=== PATIENT | female | born 1940 | race African-American/Black ===

== ENCOUNTER → 2016-07-05 | Outpatient (CLI) | payer OTHER ==
[~2016-07-05] VITALS: Ht 165.1 cm; Wt 57.5 kg
[~2016-07-05] MED LIST: ALEVE220 MG PO; BACLOFEN 10MG T10 MG PO; CLARITIN10 MG PO; CRESTOR10 MG PO; MUCINEX TA600 MG/TA2 PO; NAPROSYN500 MG PO; NEURONTIN 300300 M1 PO; PERCOCET 5-3251 EACH PO; PERCOCET PO
--- NOTE | ~2016-07-05 | HPC ---
[facility] [place] [address] PAIN MANAGEMENT CONSULTATION Name: WILFREDOCYN Kayla Room #: REG CHELSEAAisha Plata#: [id number] Admission: 07/05/16 Attend Phys: Bryce Dsouza DO Discharge: Date of : 44 Report #: [id number] THIS REPORT FOR: //name// CC: Bryce Yeboah MD DATE OF SERVICE: 07/05/2016 REFERRING PHYSICIAN: José Miguel Yeboah MD. CHIEF COMPLAINT: Low back pain, bilateral upper extremity pain with paresthesias. HISTORY OF PRESENT ILLNESS: As you know, the patient is a 76-year-old female with longstanding history of lumbar radicular symptoms secondary to severe foraminal stenosis. She returns today in followup visit with her family to request refill of medications for pain control. She is taking oxycodone at night only 1 tab p.o. at bedtime, appears to work well for the patient. She is experiencing some daytime pain for which they request possible change in therapy. They have returned to discuss options for treatment. The patient is placing pain score somewhere between 8-9/10. As you are aware, the patient has a decreasing in mental acuity due to what appears to be increasing dementia. This provides the patient with the inability to control how she perceives pain, and this is where the pain that she is currently experiencing is generated. We have discussed with the patient in the past, as well as with her family, they understand that a portion of her complaints have to do with the inability to regulate pain levels, in the patients such as . They typically recognize pain as either present or not. There is very little yang area, thus pain levels are typically elevated from report standpoint. She returns for medication management, appears to be doing well, per family. Despite this elevated 8-9 pain level report. ALLERGIES: No known drug allergies. CURRENT MEDICATIONS: Oxycodone 5 mg once a day, gabapentin 600 mg p.o. at bedtime, guaifenesin 600 mg p.r.n., loratadine 10 mg a day, lovastatin 10 mg a day. SOCIAL HISTORY: The patient denies tobacco, alcohol, IV or illicit drug use. She is retired, retired years ago, accompanied by her and her [id number]. IMAGING: No imaging available. PHYSICAL EXAMINATION: [facility] [address] [place] [address] PAIN MANAGEMENT CONSULTATION Name: WILFREDOCYN E Room #: REG YASEMIN Sherlyn#: [id number] Admission: 07/05/16 Attend Phys: Bryce Dsouza DO Discharge: Date of : 44 Report #: [id number] VITAL SIGNS: Blood pressure 126/63, pulse 61, respiratory rate 16 and unlabored. The patient is 100% on room air. Height 5 feet 5 inches tall. Weight 126.8 pounds, BMI calculated 21.1. GENERAL: Well-developed, well-nourished, and well-hydrated. A 76-year-old female who appears her stated age. She is awake, but is not able to track our conversation well. She is making comments that do not correlate with our current conversation. HEENT: Normocephalic and atraumatic. Pupils are equal, round, and reactive to light. Extraocular muscles are intact. EXTREMITIES: Show no clubbing, no cyanosis, no edema. MUSCULOSKELETAL: Seated straight leg raising negative, supine straight leg raising negative. Collin's test negative. Modified Gaenslen's is positive for axial low back pain. ASSESSMENT: 1. Symptomatic lumbar radiculopathy. 2. Displacement of lumbar intervertebral disk with radiculopathy. 3. Lumbosacral spondylosis with radiculopathy. 4. 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 5. Chronic intractable pain. PLAN: 1. The patient returns today in followup visit with family, who are providing the majority of the patient's history. Family has determined that if she takes one Oxycodone at night and utilizes her gabapentin, she seems to do well. She does have some daytime pain, which appears to be osteoarthritic in nature. The majority of pain that she is experiencing is over the left hand. As you are aware, the patient has had surgery in the area to try to alleviate some of the symptoms, but this has been ineffective. They have returned requesting medication management to continue at current dosing and also possibility of a new anti-inflammatory medication. 2. The patient was provided a prescription of oxycodone 5 mg dose 1 tab p.o. at bedtime. I have given the patient #30, releases of today, 4 weeks from today, and 8 weeks from today, 3 months' worth of medication at current dosing. The patient was advised to take this medication only as provided. She is not to try to take more medication. 3. I have provided the patient with naproxen sodium 500 mg dose 1 tab p.o. b.i.d., #60. She will take one in the morning, one again at around 6'o clock in the evening hours. She was given this with 2 refills. She is to watch for dyspepsia, worsening blood pressure, or lower extremity edema with the use of this medication. If any potential side effects, discontinue immediately call for further instructions. 4. The patient and I did have a discussion with the family present today about how decreasing mental acuity tends to affect pain perception. Again, I have advised the patient and her family that the perception of pain in most patients with decreased mental acuity is difficult to obtain. They have either pain that [facility] [address] [place] [address] PAIN MANAGEMENT CONSULTATION Name: CYN VILLALOBOS Room #: REG YASEMIN Plata#: [id number] Admission: 07/05/16 Attend Phys: Bryce Dsouza DO Discharge: Date of : 44 Report #: [id number] is present or not present, it is difficult for them to regulate the pain levels, so they rarely give a pain scores of 1 through 7. They typically give pain scores of either not present or fully present 8-10/10. This patient is displaying very similar kind of responses when questioned about pain. She is easily distracted from her pain, indicating that her pain levels are typically not as high as reported. These patients are very difficult to treat, as it is difficult to determine if the pain is truly present into one level. I believe this low dose formula of treatment appears to be working well. I would recommend continuation for the next 3 months. By: [id number] Bryce Dsouza DO /nt
[2016-07-05 11:18] VITALS: BP 126/63
== END | disposition home or self-care (01) ==
LOC: PAIN 07:00
DX: M51.16 Intervertebral disc disorders with radiculopathy, lumbar region (principal); M47.27 Other spondylosis with radiculopathy, lumbosacral region; M48.06 Spinal stenosis, lumbar region; G89.29 Other chronic pain; Z87.891 Personal history of nicotine dependence

== ENCOUNTER 2016-12-06 11:51 | Emergency (ER) | payer OTHER ==
[~2016-12-06] VITALS: Ht 167.6 cm; Wt 54.4 kg
[2016-12-06] MEDS ORDERED: NEXIUM40 MG PO (12:15)
[2016-12-06 13:54] LABS: ABSOLUTE NEUTROPHILS 2.9 thou/uL (1.4-8.2); BASOPHILS 0.6 % (0.0-2.0); EOSINOPHILS 3.8 % (0.0-3.0); HEMATOCRIT 38.1 % (37.0-47.0); HEMOGLOBIN 13.1 gm/dL (12.0-15.0); LYMPHOCYTES 38.5 % (24.0-44.0); MCH 32.6 pg (26.0-34.0); MCHC 34.4 g/dL (28.0-37.0); MCV 94.6 fL (80.0-100.0); MONOCYTES 7.3 % (1.0-8.0); PLATELET COUNT 268 thou/uL (150-400); POLYS 49.8 % (36.0-66.0); RBC 4.03 mil/uL (4.20-5.00); RDW 13.1 % (10.5-14.5); WBC 5.8 thou/uL (4.0-11.0)
[2016-12-06 13:55] LABS: MANUAL DIFF NO
[2016-12-06 14:10] LABS: CALCIUM 9.3 mg/dL (8.5-10.1); CREATININE 0.6 mg/dL (0.6-1.0); POTASSIUM 3.6 mmol/L (3.5-5.1)
[2016-12-06 14:15] LABS: ALBUMIN 3.6 g/dL (3.4-5.0); TOTAL BILIRUBIN 0.4 mg/dL (<0.1-1.0); TOTAL PROTEIN 6.8 g/dL (6.4-8.2)
[2016-12-06] MEDS ORDERED: TRAMADOL 50 MG50 MG PO (14:30)
== END 2016-12-06 15:08 | disposition home or self-care (01) ==
LOC: ER 11:51
PROVIDERS: Emergency Medicine
DX: S93.601A Unspecified sprain of right foot, initial encounter (principal); F03.90 Unspecified dementia, unspecified severity, without behavioral disturbance, psychotic disturbance, mood disturbance, and anxiety; X58.XXXA Exposure to other specified factors, initial encounter; Y93.89 Activity, other specified; Y92.89 Other specified places as the place of occurrence of the external cause; Y99.8 Other external cause status

== ENCOUNTER 2017-01-03 10:58 | Emergency (ER) | payer OTHER ==
[~2017-01-03] VITALS: Ht 170.2 cm; Wt 62.6 kg
--- NOTE | ~2017-01-03 | EKG ---
[place] [address] [facility] [place] [address] ELECTROCARDIOGRAM REPORT Name: WILFREDOCYN E Room [facility]: [facility] [id number] Admission: 01/03/17 Attend Phys: Discharge: 01/03/17 Date of : 44 Report #: [id number] THIS REPORT FOR: //name// [facility] ED Test Date: 2017-01-03 Test Time: 11:27:52 Pat Name: CYN VILLALOBOS Department: Room: Gender: F Head Of Housekeeping: LIN : 1940 Requested By: Kaleb Ospina Order Number: [id number] MD: Bj Mathews Measurements Intervals Hickman Rate: 50 P: 58 ME: 129 QRS: 4 QRSD: 100 T: 36 QT: 456 QTc: 416 Interpretive Statements Sinus bradycardia Borderline low voltage, extremity leads Compared to ECG 05/01/2008 15:44:24 No significant changes Electronically Signed On 01-03-2017 17:18:43 CDT by Bj Mathews [email or web address] <ELECTRONICALLY SIGNED> By: Bj Mathews MD, [facility] 01/03/17 1718 [id number] Bj Mathews MD, FACC /EPI
[~2017-01-03 10:58] MED LIST changes: +NEXIUM40 MG PO; +TRAMADOL 50 MG50 MG PO
[2017-01-03 11:35] LABS: MCH 32.6 pg (26.0-34.0)
[2017-01-03 11:37] LABS: BASOPHILS 0.9 % (0.0-2.0); EOSINOPHILS 2.1 % (0.0-3.0); HEMATOCRIT 39.1 % (37.0-47.0); HEMOGLOBIN 13.3 gm/dL (12.0-15.0); LYMPHOCYTES 32.4 % (24.0-44.0); MCHC 34.1 g/dL (28.0-37.0); MCV 95.7 fL (80.0-100.0); MONOCYTES 8.5 % (1.0-8.0); PLATELET COUNT 306 thou/uL (150-400); POLYS 56.1 % (36.0-66.0); RBC 4.09 mil/uL (4.20-5.00); RDW 13.4 % (10.5-14.5); WBC 5.4 thou/uL (4.0-11.0)
[2017-01-03 11:38] LABS: MANUAL DIFF NO
[2017-01-03 11:45] LABS: CALCIUM 9.3 mg/dL (8.5-10.1); CREATININE 0.8 mg/dL (0.6-1.0); POTASSIUM 3.7 mmol/L (3.5-5.1)
[2017-01-03 13:13] LABS: URINE BILIRUBIN NEGATIVE (Negative); URINE BLOOD TRACE (Negative); URINE COLOR YELLOW; URINE GLUCOSE-RANDOM* NEGATIVE (Negative); URINE KETONES NEGATIVE (Negative); URINE NITRITE POSITIVE (Negative); URINE PROTEIN (DIPSTICK) NEGATIVE (Negative); URINE SPECIFIC GRAVITY <= 1.005 (1.003-1.035); URINE UROBILINOGEN 0.2 E.U./dl (0.2-1.0)
[2017-01-03 13:23] LABS: CASTS None Seen /LPF (None Seen); CRYSTALS None Seen /LPF (None Seen); SQUAMOUS 4-10 Moderate /LPF (0-3); URINE WBC 6-15 Few /HPF (0-5)
[2017-01-03 13:24] LABS: BACTERIA 1-9 Few /HPF (None Seen); URINE RBC None Seen /HPF (0-2)
[2017-01-03] MEDS ORDERED: CIPRO500 MG PO (13:43)
== END 2017-01-03 15:40 | disposition home or self-care (01) ==
LOC: ER 10:58
PROVIDERS: Nurse Practitioner
DX: N39.0 Urinary tract infection, site not specified (principal); F03.90 Unspecified dementia, unspecified severity, without behavioral disturbance, psychotic disturbance, mood disturbance, and anxiety

== ENCOUNTER 2017-04-10 13:09 | Emergency (ER) | payer OTHER ==
[~2017-04-10] VITALS: Ht 167.6 cm; Wt 63.5 kg
[~2017-04-10 13:09] MED LIST changes: +CIPRO500 MG PO
[2017-04-10 15:36] LABS: ABSOLUTE NEUTROPHILS 4.7 thou/uL (1.4-8.2); BASOPHILS 1.1 % (0.0-2.0); EOSINOPHILS 2.4 % (0.0-3.0); HEMATOCRIT 38.8 % (37.0-47.0); HEMOGLOBIN 13.3 gm/dL (12.0-15.0); LYMPHOCYTES 29.8 % (24.0-44.0); MCH 32.1 pg (26.0-34.0); MCHC 34.2 g/dL (28.0-37.0); MCV 93.7 fL (80.0-100.0); MONOCYTES 6.8 % (1.0-8.0); PLATELET COUNT 370 thou/uL (150-400); POLYS 59.9 % (36.0-66.0); RBC 4.14 mil/uL (4.20-5.00); RDW 13.1 % (10.5-14.5); URINE BILIRUBIN NEGATIVE (Negative); URINE BLOOD NEGATIVE (Negative); URINE CLARITY CLEAR; URINE COLOR YELLOW; URINE GLUCOSE-RANDOM* NEGATIVE (Negative); URINE KETONES NEGATIVE (Negative); URINE LEUKOCYTES-REFLEX NEGATIVE (Negative); URINE NITRITE-REFLEX NEGATIVE (Negative); URINE PROTEIN (DIPSTICK) NEGATIVE (Negative); URINE SPECIFIC GRAVITY <= 1.005 (1.005-1.035); URINE UROBILINOGEN 0.2 E.U./dl (0.2-1.0); WBC 7.8 thou/uL (4.0-11.0)
[2017-04-10 15:47] LABS: ALBUMIN 3.8 g/dL (3.4-5.0); ANION GAP 7 mmol/L (7-16); BUN 11 mg/dL (7-18); CALCIUM 9.4 mg/dL (8.5-10.1); CHLORIDE 104 mmol/L (98-107); CO2 28 mmol/L (21-32); CREATININE 0.8 mg/dL (0.6-1.0); DIRECT BILIRUBIN < 0.1 mg/dL (<0.1-0.3); LIPASE 179 U/L (73-393); POTASSIUM 3.7 mmol/L (3.5-5.1); SGOT 19 U/L (15-37); SGPT 21 U/L (30-65); SODIUM 139 mmol/L (136-145); TOTAL BILIRUBIN 0.4 mg/dL (<0.1-1.0); TOTAL PROTEIN 7.4 g/dL (6.4-8.2)
[2017-04-10 15:53] LABS: GLUCOSE 95 mg/dL (74-106)
[2017-04-10 15:57] VITALS: BP 129/47
== END 2017-04-10 16:03 | disposition home or self-care (01) ==
LOC: ER 13:09
PROVIDERS: Emergency Medicine
DX: F03.90 Unspecified dementia, unspecified severity, without behavioral disturbance, psychotic disturbance, mood disturbance, and anxiety (principal); R32 Unspecified urinary incontinence